=== PATIENT | male | born 1970 | race Caucasian/White ===

== ENCOUNTER 2018-07-11 13:02 | Emergency (ER) | payer OTHER ==
[~2018-07-11] VITALS: Ht 177.8 cm; Wt 79.4 kg
--- NOTE | 2018-07-11 19:55 | EKG ---
[facility] [address] [facility] [place] [address] Signed Sinus bradycardia with sinus arrhythmia Otherwise normal ECG No previous ECGs available Confirmed by INES GATES MD ([id number] on 07/11/2018 7:55:01 PM Electronically Signed By: INES GATES MD 07/11/18 195 PATIENT NAME: TORY LAMBERT JOHNATHAN Electrocardiogram DATE OF : 68 PHYSICIAN: INES GATES MD REPORT #: [id number] REPORT IS CONFIDENTIAL AND NOT TO BE RELEASED WITHOUT AUTHORIZATION
== END 2018-07-11 15:49 | disposition short-term general hospital (02) ==
LOC: ED 13:02
DX: S06.4X1A Epidural hemorrhage with loss of consciousness of 30 minutes or less, initial encounter (principal); S02.0XXA Fracture of vault of skull, initial encounter for closed fracture; S02.2XXA Fracture of nasal bones, initial encounter for closed fracture; S02.642A Fracture of ramus of left mandible, initial encounter for closed fracture; Y04.8XXA Assault by other bodily force, initial encounter
CPT/HCPCS: 51701; 70450; 70486; 71045; 72125; 80053; 81001; 83690; 85025; 85610; 85730; 93005; 93010; 99285-25